=== PATIENT | female | born 1990 | race Caucasian/White ===

== ENCOUNTER 2016-06-18 | Emergency (ER) | payer SELFPAY ==
[~2016-06-18] MED LIST: ALDACTONE50 MG; AMITRIPTYLINE H25 MG; DORYX100 M; IBUPROFEN800 MG PO; MINOCYCLINE HC100 MG; MULTIVITAMIN1 TAB PO; ORTHO TRI-7 DAYSX 3; OXYCODONE/APAP PO; PRENATAL1 EACH PO; TRAZODONE100 MG; ZOFRAN ODT4 MG/UDTAB PO; ZOFRAN4 M1 PO
[2016-06-18] MEDS ORDERED: CLARITIN10 M6 PO (00:19)
[2016-06-18] MEDS ORDERED: CYCLOBENZAPRINE10 M1 PO (01:04)
[2016-06-18] MEDS ORDERED: NORCO 5-325 TA1 EACH PO (01:04)
== END 2016-06-18 01:15 ==
DX: S29.012A Strain of muscle and tendon of back wall of thorax, initial encounter (principal); F17.200 Nicotine dependence, unspecified, uncomplicated; X50.1XXA Overexertion from prolonged static or awkward postures, initial encounter; Y93.B9 Activity, other involving muscle strengthening exercises